=== PATIENT | female | born 1950 | race Caucasian/White ===

== ENCOUNTER 2024-09-09 18:17 | Inpatient (IN) | payer MEDICARE ==
[~2024-09-09] VITALS: Ht 167.6 cm; Wt 100.2 kg
[2024-09-09 19:42] LABS: BASOPHILS % 0.3 % (0.0-1.0); EOSINOPHILS # (AUTO) 0.1 (0.0-0.4); EOSINOPHILS % 1.4 % (0.0-6.0); HEMATOCRIT 35.7 % (34.2-44.1); HEMOGLOBIN 10.4 g/dL (12.0-16.0); LYMPHOCYTES # (AUTO) 0.8 (1.0-3.2); LYMPHOCYTES % 10.6 % (18.0-39.1); MEAN CORPUSCULAR HEMOGLOBIN 26.9 pg (28-32); MEAN CORPUSCULAR HGB CONC 29.1 g/dL (31-35); MEAN CORPUSCULAR VOLUME 92.5 fL (81-99); MONOCYTES # (AUTO) 0.4 (0.2-0.8); MONOCYTES % 5.8 % (4.4-11.3); NEUTROPHILS # (AUTO) 5.9 (2.1-6.9); NEUTROPHILS % 81.6 % (38.7-80.0); PLATELET COUNT 150 x10e3/uL (140-360); RED BLOOD COUNT 3.86 x10e6/uL (3.6-5.1); RED CELL DISTRIBUTION WIDTH 26.6 % (11.7-14.4)
[2024-09-09 20:03] LABS: ALBUMIN 2.2 g/dL (3.5-5.0); ALBUMIN/GLOBULIN RATIO 0.5 (0.8-2.0); ANION GAP 13.2 mmol/L (8-16); BILIRUBIN,TOTAL 0.6 mg/dL (0.2-1.2); CALCIUM 9.2 mg/dL (8.4-10.2); CREATININE, SERUM 0.58 mg/dL (0.57-1.11); POTASSIUM 4.2 mmol/L (3.5-5.1); TOTAL PROTEIN 6.9 g/dL (6.5-8.1)
[2024-09-09 20:08] LABS: TROPONIN I 0.019 ng/mL (0-0.300)
[2024-09-09 21:20] VITALS: PULSE 87; RESP 18; TEMP 98.9
[2024-09-09 21:50] VITALS: BP 118/70; PULSE 94; RESP 21; TEMP 98.5; O2SAT 96
[2024-09-09] MEDS: SODIUM CHLORIDE 0.9% 1000ML 1,000 ML IV SCH (21:59)
[2024-09-09 22:16] VITALS: BP 118/70; PULSE 94; RESP 21; TEMP 98.5; O2SAT 96
[2024-09-09 22:46] VITALS: PULSE 105; RESP 19; O2SAT 99
[2024-09-09] MEDS: Morphine 2mg Syringe 2 MG/ML SYR IV PRN (23:03)
[2024-09-10] VITALS (12 sets, daily range): BP systolic 95–131; BP diastolic 52–71; PULSE 76–101; RESP 18–20; TEMP 97.8–98.6; O2SAT 94–100
[2024-09-10 03:10] LABS: TROPONIN I 0.021 ng/mL (0-0.300)
[2024-09-10 06:56] LABS: BASOPHILS % 0.2 % (0.0-1.0); EOSINOPHILS # (AUTO) 0.1 (0.0-0.4); EOSINOPHILS % 1.8 % (0.0-6.0); HEMATOCRIT 29.4 % (34.2-44.1); HEMOGLOBIN 8.6 g/dL (12.0-16.0); LYMPHOCYTES # (AUTO) 0.8 (1.0-3.2); LYMPHOCYTES % 14.7 % (18.0-39.1); MEAN CORPUSCULAR HEMOGLOBIN 27.3 pg (28-32); MEAN CORPUSCULAR HGB CONC 29.3 g/dL (31-35); MEAN CORPUSCULAR VOLUME 93.3 fL (81-99); MONOCYTES # (AUTO) 0.4 (0.2-0.8); NEUTROPHILS # (AUTO) 4.3 (2.1-6.9); NEUTROPHILS % 75.8 % (38.7-80.0); PLATELET COUNT 132 x10e3/uL (140-360); RED BLOOD COUNT 3.15 x10e6/uL (3.6-5.1); RED CELL DISTRIBUTION WIDTH 26.5 % (11.7-14.4); WHITE BLOOD COUNT 5.71 x10e3/uL (4.8-10.8)
[2024-09-10 07:18] LABS: ALBUMIN 1.8 g/dL (3.5-5.0); ANION GAP 11.6 mmol/L (8-16); BILIRUBIN,TOTAL 0.6 mg/dL (0.2-1.2); CALCIUM 8.6 mg/dL (8.4-10.2); CREATININE, SERUM 0.58 mg/dL (0.57-1.11); POTASSIUM 3.6 mmol/L (3.5-5.1); TOTAL PROTEIN 5.6 g/dL (6.5-8.1)
[2024-09-10 07:19] LABS: ALBUMIN/GLOBULIN RATIO 0.5 (0.8-2.0)
[2024-09-10] MEDS ORDERED: METOPROLOL TART25 MG PO (11:42)
[2024-09-10] MEDS ORDERED: GUAIFENESI100 MG/5 M PO (11:42)
[2024-09-10] MEDS ORDERED: AMIODARONE HCL100 MG PO (11:42)
[2024-09-10] MEDS ORDERED: PROTONIX20 MG PO (11:42)
[2024-09-10] MEDS ORDERED: COMBIVENT RESPIM4 GM IH (11:42)
[2024-09-10] MEDS ORDERED: NYSTATIN-TRIAMC15 G1 TOP (11:42)
[2024-09-10] MEDS ORDERED: BUPROPION HCL100 MG PO (11:42)
[2024-09-10] MEDS ORDERED: PULMICORT1 MG/2 ML (11:42)
[2024-09-10] MEDS ORDERED: MIDODRINE HCL5 MG PO (11:42)
[2024-09-10] MEDS ORDERED: MELATONIN3 MG PO (11:42)
[2024-09-10] MEDS ORDERED: MIRALAX17 GM PO (11:42)
[2024-09-10] MEDS ORDERED: FUROSEMIDE40 MG PO (11:42)
[2024-09-10] MEDS ORDERED: BENZONATATE100 MG PO (11:42)
[2024-09-10] MEDS ORDERED: SENOKOT-S TABL1 EACH PO (11:43)
[2024-09-10] MEDS ORDERED: FLOMAX0.4 MG PO (11:43)
[2024-09-10 11:46] LABS: TROPONIN I 0.016 ng/mL (0-0.300)
[2024-09-10] MEDS ORDERED: ALBUTEROL/IPRATROPIUM 3 ML NEB NEB PRN (13:30)
[2024-09-10] MEDS: METOPROLOL TARTRATE 25 MG TAB PO SCH (14:00)
[2024-09-10] MEDS: MIDODRINE HCL 5 MG TABLET PO SCH (16:01)
[2024-09-10] MEDS: POLYETHYLENE GLYCOL 3350 17 GM PACK PO SCH (16:01)
[2024-09-10] MEDS: TAMSULOSIN HCL 0.4 MG CAP PO SCH (16:01)
[2024-09-10] MEDS: BENZONATATE 100 MG CAP PO SCH (16:01)
[2024-09-10] MEDS: SENNA-S TABLET PO SCH (16:01)
[2024-09-10] MEDS: NYSTATIN/TRIAMCINOLONE 30 GM CR TOP SCH (16:02)
[2024-09-10] MEDS: ENOXAPARIN SOD INJ 40 MG/0.4 ML SYR SC SCH (16:02)
[2024-09-10] MEDS: ALBUTEROL/IPRATROPIUM 3 ML NEB NEB SCH (19:33)
[2024-09-11] VITALS (11 sets, daily range): BP systolic 91–116; BP diastolic 64–80; PULSE 47–110; RESP 18–20; TEMP 98.1–98.6; O2SAT 95–100
[2024-09-11] MEDS: BUDESONIDE 0.5MG/2 ML NEB NEB SCH (00:29)
[2024-09-11] MEDS: AMIODARONE HCL 200 MG TAB PO SCH (09:09)
[2024-09-11] MEDS: PANTOPRAZOLE SOD 40 MG TABEC PO SCH (09:09)
[2024-09-11] MEDS: BUPROPION HCL 100 MG TAB PO SCH (09:09)
[2024-09-11] MEDS: HYDROCORTISONE SOD SUCCINATE 100 MG VIAL IV ONE (10:18)
[2024-09-11] MEDS: IRON SUCROSE 100 MG in SODIUM CHLORIDE 0.9% 100 ML IV SCH (10:19)
[2024-09-11] MEDS: METOPROLOL TARTRATE 25 MG TAB PO SCH (15:57)
[2024-09-12] VITALS (11 sets, daily range): BP systolic 93–106; BP diastolic 56–70; PULSE 68–105; RESP 17–21; TEMP 97.4–98.2; O2SAT 95–99
[2024-09-12 06:09] LABS: BASOPHILS % 0.3 % (0.0-1.0); EOSINOPHILS % 0.3 % (0.0-6.0); HEMATOCRIT 26.9 % (34.2-44.1); LYMPHOCYTES # (AUTO) 0.7 (1.0-3.2); LYMPHOCYTES % 19.2 % (18.0-39.1); MEAN CORPUSCULAR HEMOGLOBIN 27.4 pg (28-32); MEAN CORPUSCULAR VOLUME 94.4 fL (81-99); MONOCYTES # (AUTO) 0.2 (0.2-0.8); MONOCYTES % 6.5 % (4.4-11.3); NEUTROPHILS # (AUTO) 2.5 (2.1-6.9); NEUTROPHILS % 73.4 % (38.7-80.0); RED BLOOD COUNT 2.85 x10e6/uL (3.6-5.1); RED CELL DISTRIBUTION WIDTH 24.8 % (11.7-14.4); WHITE BLOOD COUNT 3.38 x10e3/uL (4.8-10.8)
[2024-09-12 06:16] LABS: HEMOGLOBIN 7.8 g/dL (12.0-16.0); PLATELET COUNT 122 x10e3/uL (140-360)
[2024-09-12 06:40] LABS: ANION GAP 10.9 mmol/L (8-16); CALCIUM 8.5 mg/dL (8.4-10.2); CREATININE, SERUM 0.58 mg/dL (0.57-1.11)
[2024-09-12 06:43] LABS: POTASSIUM 2.9 mmol/L (3.5-5.1)
[2024-09-12] MEDS ORDERED: MAGNESIUM SULFATE 2GM/50ML IV PRN (08:00)
[2024-09-12 08:32] LABS: ANISOCYTOSIS MARKED; BAND NEUTROPHILS % (MANUAL) 1 %; ELLIPTOCYTE, RBC SLIGHT; EOSINOPHILS % (MANUAL) 1 % (0-7); HYPOCHROMASIA MODERATE; LYMPHOCYTES % (MANUAL) 10 % (19-48); MONOCYTES % (MANUAL) 9 % (3.4-9.0); NEUTROPHILS % (MANUAL) 79 % (40-74); OVALOCYTES FEW; PLATELET ESTIMATE ADEQUATE; PLATELET MORPHOLOGY COMMENT NORMAL; RBC MORPHOLOGY COMMENT ABNORMAL
[2024-09-12] MEDS: POTASSIUM CHLORIDE 10MEQ EA PO SCH (09:49)
[2024-09-12] MEDS: HYDROCORTISONE 10 MG TAB PO SCH (09:49)
[2024-09-12] MEDS: MAGNESIUM SULFATE 2GM/50ML 50 ML IV PRN (09:50)
[2024-09-12] MEDS: SODIUM CHLORIDE 0.9% 250ML 250 ML ONE (11:57)
[2024-09-12] MEDS: COLLAGENASE 5 GM TUBE TOP SCH (17:40)
[2024-09-13] VITALS (11 sets, daily range): BP systolic 91–108; BP diastolic 52–69; PULSE 78–100; RESP 17–21; TEMP 97.6–98.8; O2SAT 95–99
[2024-09-13] MEDS: ONDANSETRON HCL INJ 2MG/ML 2ML 2 MG/ML VIAL IV PRN (00:24)
[2024-09-13 05:47] LABS: ANION GAP 11.8 mmol/L (8-16); CALCIUM 8.5 mg/dL (8.4-10.2); CREATININE, SERUM 0.58 mg/dL (0.57-1.11); POTASSIUM 4.8 mmol/L (3.5-5.1)
[2024-09-13 06:03] LABS: MAGNESIUM 1.7 MG/DL (1.3-2.1); PHOSPHORUS 2.1 MG/DL (2.3-4.7)
[2024-09-14] VITALS (11 sets, daily range): BP systolic 93–108; BP diastolic 55–70; PULSE 87–107; RESP 15–22; TEMP 97.5–99.2; O2SAT 95–100
[2024-09-15] VITALS (13 sets, daily range): BP systolic 91–108; BP diastolic 20–74; PULSE 81–96; RESP 15–20; TEMP 97.2–99.5; O2SAT 95–100
[2024-09-15 05:20] LABS: BASOPHILS % 0.2 % (0.0-1.0); EOSINOPHILS # (AUTO) 0.2 (0.0-0.4); EOSINOPHILS % 3.9 % (0.0-6.0); HEMATOCRIT 29.1 % (34.2-44.1); HEMOGLOBIN 8.4 g/dL (12.0-16.0); LYMPHOCYTES % 21.7 % (18.0-39.1); MEAN CORPUSCULAR HEMOGLOBIN 27.6 pg (28-32); MEAN CORPUSCULAR HGB CONC 28.9 g/dL (31-35); MEAN CORPUSCULAR VOLUME 95.7 fL (81-99); MONOCYTES # (AUTO) 0.2 (0.2-0.8); MONOCYTES % 4.3 % (4.4-11.3); NEUTROPHILS # (AUTO) 3.1 (2.1-6.9); NEUTROPHILS % 69.7 % (38.7-80.0); PLATELET COUNT 117 x10e3/uL (140-360); RED BLOOD COUNT 3.04 x10e6/uL (3.6-5.1); RED CELL DISTRIBUTION WIDTH 23.9 % (11.7-14.4); WHITE BLOOD COUNT 4.38 x10e3/uL (4.8-10.8)
[2024-09-15 06:14] LABS: ANION GAP 13.3 mmol/L (8-16); CALCIUM 8.7 mg/dL (8.4-10.2); CREATININE, SERUM 0.56 mg/dL (0.57-1.11); POTASSIUM 4.3 mmol/L (3.5-5.1)
[2024-09-15 07:28] LABS: PLATELET ESTIMATE ADEQUATE; PLATELET MORPHOLOGY COMMENT NORMAL
[2024-09-15 07:29] LABS: ANISOCYTOSIS MODERATE; OVALOCYTES FEW; POLYCHROMASIA FEW; RBC MORPHOLOGY COMMENT ABNORMAL
[2024-09-16] VITALS (9 sets, daily range): BP systolic 81–116; BP diastolic 29–73; PULSE 80–102; RESP 18–20; TEMP 97.7–98.3; O2SAT 95–100
[2024-09-17] VITALS (12 sets, daily range): BP systolic 98–116; BP diastolic 59–81; PULSE 82–116; RESP 18–20; TEMP 97.6–98.6; O2SAT 20–100
[2024-09-18] VITALS (12 sets, daily range): BP systolic 101–114; BP diastolic 59–75; PULSE 87–118; RESP 18–22; TEMP 97.4–98.4; O2SAT 20–99
[2024-09-18 06:13] LABS: BASOPHILS % 0.2 % (0.0-1.0); EOSINOPHILS # (AUTO) 0.2 (0.0-0.4); EOSINOPHILS % 4.9 % (0.0-6.0); HEMOGLOBIN 9.1 g/dL (12.0-16.0); LYMPHOCYTES # (AUTO) 0.9 (1.0-3.2); LYMPHOCYTES % 22.7 % (18.0-39.1); MEAN CORPUSCULAR HEMOGLOBIN 27.8 pg (28-32); MEAN CORPUSCULAR HGB CONC 29.4 g/dL (31-35); MEAN CORPUSCULAR VOLUME 94.8 fL (81-99); MONOCYTES # (AUTO) 0.3 (0.2-0.8); MONOCYTES % 6.4 % (4.4-11.3); NEUTROPHILS # (AUTO) 2.7 (2.1-6.9); NEUTROPHILS % 65.3 % (38.7-80.0); PLATELET COUNT 155 x10e3/uL (140-360); RED BLOOD COUNT 3.27 x10e6/uL (3.6-5.1); RED CELL DISTRIBUTION WIDTH 21.8 % (11.7-14.4); WHITE BLOOD COUNT 4.09 x10e3/uL (4.8-10.8)
[2024-09-18] MEDS: ACETAMINOPHEN 325 MG TAB PO PRN (06:24)
[2024-09-18 07:37] LABS: ANION GAP 12.7 mmol/L (8-16); CALCIUM 8.7 mg/dL (8.4-10.2); CREATININE, SERUM 0.57 mg/dL (0.57-1.11); POTASSIUM 3.7 mmol/L (3.5-5.1)
[2024-09-18 12:55] LABS: HYPOCHROMASIA SLIGHT; PLATELET ESTIMATE ADEQUATE; RBC MORPHOLOGY COMMENT NORMAL
[2024-09-18 12:56] LABS: PLATELET MORPHOLOGY COMMENT FEW LARGE
[2024-09-19] VITALS (9 sets, daily range): BP systolic 100–104; BP diastolic 63–69; PULSE 83–105; RESP 17–20; TEMP 97.7–98.3; O2SAT 98–100
[2024-09-19] MEDS ORDERED: ONDANSETRON HCL 4 MG ORAL DISINTEGRATING TAB PO PRN (09:30)
[2024-09-19] MEDS ORDERED: NITROFURANTOIN MACROCRYSTALS 100 MG CAP PO SCH (21:00)
== END 2024-09-19 14:44 | disposition hospice, home (50) | DRG 177 ==
LOC: ER 18:24 → ERHOLD 18:36 → MED/SURG2 21:39
PROVIDERS: ADMIT Internal Medicine; ATTEND Internal Medicine
DX: J69.0 Pneumonitis due to inhalation of food and vomit (principal); I50.33 Acute on chronic diastolic (congestive) heart failure; R53.2 Functional quadriplegia; R64 Cachexia; J44.1 Chronic obstructive pulmonary disease with (acute) exacerbation; N39.0 Urinary tract infection, site not specified; J96.10 Chronic respiratory failure, unspecified whether with hypoxia or hypercapnia; R62.7 Adult failure to thrive; R53.81 Other malaise; N31.9 Neuromuscular dysfunction of bladder, unspecified; Z58.89 Other problems related to physical environment; E66.01 Morbid (severe) obesity due to excess calories; Z68.35 Body mass index [BMI] 35.0-35.9, adult; Z99.3 Dependence on wheelchair; Z96.0 Presence of urogenital implants
CPT/HCPCS: 36415; 71045; 80048; 80053; 82550; 83690; 83735; 83880; 84100; 84484; 85025; 87071; 87075; 87186; 87205; 93005; 93306; 94640; 94799; 99252; 99284; J1650; J1720; J1756; J2270; J2405; J2470; J2543; J3475; J7030; J7050